=== PATIENT | female | born 2000 ===

== ENCOUNTER 2020-05-23 11:16 | Emergency (ER) | payer OTHER ==
[2020-05-23 12:26] LABS: Urine Blood NEGATIVE (NEG); Urine Glucose NEGATIVE (NEG); Urine Protein NEGATIVE (NEG)
[2020-05-23 12:36] LABS: Urine Bacteria 20-50 /HPF (<20); Urine Culture Reflex Order REFLEXED; Urine RBC NONE SEEN /HPF (NONE SEEN)
[2020-05-23 13:17] LABS: Absolute Lymphocytes (CBC) 1.7 K/uL (0.7-4.9); Basophils % 0.4 % (0-1.3); Hematocrit 26.4 % (36.0-45.0); Lymphocytes % 12.5 % (15.3-44.8); MPV 7.5 fL (7.6-11.3); RBC Red Blood Cell Count 3.46 M/uL (3.86-4.86)
[2020-05-23 13:26] LABS: BUN Blood Urea Nitrogen 5 mg/dL (7-18); Bicarbonate 23 mmol/L (21-32); Glucose Level 72 mg/dL (74-106); Potassium 3.8 mmol/L (3.5-5.1); Sodium Level 135 mmol/L (136-145)
[2020-05-23 13:30] LABS: Blood Morphology Comment NOT SEEN (NOT SEEN); Platelet Estimate ADEQ
[2020-05-23] MEDS ORDERED: NA CHLORIDE 0.9% 1,000 ML ONE (13:38)
--- NOTE | 2020-05-23 14:13 | ER ---
Nurse's Notes [facility] Name: Jen Balbuena Age: 19 yrs Sex: Female : 2000 Arrival Date: 05/23/2020 Time: 11:19 Bed 6 Private MD: Diagnosis: Syncope and collapse;Urinary tract infection, site not specified Presentation: 05/23 11:40 Chief complaint: Patient states: Syncopal episode 1 hour ago while shopping. Fell ss backwards. Complains of mild low back pain and intermittent dizziness. Pt is 29 weeks , denies abd pain/ vaginal bleeding. Coronavirus screen: Patient denies a cough. Patient denies shortness of breath or difficulty breathing. Patient denies measured and/or subjective temperature greater than 100.4F prior to today's visit. Patient denies travel on a cruise ship or to a country the [facility] currently lists as an affected area. Patient denies contact with known and/or suspected case of COVID-19. Proceed with normal triage. Ebola Screen: Patient denies exposure to infectious person. Patient denies travel to an Ebola-affected area in the 21 days before illness onset. Initial Sepsis Screen: Does the patient meet any 2 criteria? No. Patient's initial sepsis screen is negative. Does the patient have a suspected source of infection? No. Patient's initial sepsis screen is negative. Risk Assessment: Do you want to hurt yourself or someone else? Patient reports no desire to harm self or others. Onset of symptoms was May 23, 2020 at 10:50. 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 - Social history:: Smoking status: Patient denies any tobacco usage or history of. Screenin:05 Abuse screen: Denies threats or abuse. Nutritional screening: No deficits noted. em Tuberculosis screening: No symptoms or risk factors identified. Fall Risk None identified. Assessment: 12:05 General: Appears in no apparent distress. comfortable, Behavior is calm, cooperative, em appropriate for age, Denies fever. Pain: Denies pain. Neuro: Level of Consciousness is awake, alert, obeys commands, Oriented to person, place, time, situation, Appropriate for age Reports a syncopal episode Denies weakness headache. Cardiovascular: Denies chest pain, Capillary refill < 3 seconds Patient's skin is warm and dry. Respiratory: Airway is patent Respiratory effort is even, unlabored, Respiratory pattern is regular, symmetrical. GI: Patient currently denies nausea, vomiting. : Denies burning with urination, cramping discharge, urinary frequency, vaginal bleeding. Derm: Skin is intact, is healthy with good turgor, Skin is pink, warm \T\ dry. Musculoskeletal: Capillary refill < 3 seconds, Range of motion: intact in all extremities. 13:25 Reassessment: Patient appears in no apparent distress at this time. Patient and/or em family updated on plan of care and expected duration. Pain level reassessed. Patient is alert, oriented x 3, equal unlabored respirations, skin warm/dry/pink. 14:14 Reassessment: Patient appears in no apparent distress at this time. Patient and/or em family updated on plan of care and expected duration. Pain level reassessed. Patient is alert, oriented x 3, equal unlabored respirations, skin warm/dry/pink. Vital Signs: 11:40 BP 126 / 77; Pulse 91; Resp 14; Temp 98.6(TE); Pulse Ox 100% on R/A; Weight 74.84 kg; ss Height 5 ft. 5 in. (165.10 cm); Pain 4/10; 12:57 BP 129 / 75 RA Supine; Pulse 83; Resp 16; Pulse Ox 100% on R/A; dh3 12:59 BP 120 / 74 RA Sitting; Pulse 106; Resp 18; Pulse Ox 99% on R/A; dh3 13:01 BP 127 / 62 RA Standing; Pulse 102; Resp 18; Pulse Ox 100% on R/A; dh3 14:13 BP 122 / 80; Pulse 91; Resp 18; Pulse Ox 100% on R/A; Pain 0/10; em 11:40 Body Mass Index 27.46 (74.84 kg, 165.10 cm) Vitals: 13:13 Heart Tones: 174. dh3 ED Course: 11:19 Patient arrived in ED. bp1 11:42 Triage completed. ss 11:43 Arm band placed on right wrist. ss 11:44 Aleja Justice FNP-C is [facility]. kb 11:44 Jesus Alves MD is Attending Physician. kb 11:49 Yoshi Lay, RN is Primary Nurse. em 12:05 Patient has correct armband on for positive identification. Placed in gown. Bed in low em position. Side rails up X2. Pulse ox on. NIBP on. 13:05 Initial lab(s) drawn, by ia, sent to lab. Inserted saline lock: 20 gauge in right dh3 antecubital area, using aseptic technique. Blood collected. 13:31 EKG done, by ED staff, reviewed by Aleja STARKS. [facility] Administered Medications: 13:25 Drug: NS 0.9% 1000 ml Route: IV; Rate: 1000 ml; Site: right antecubital; em 14:35 Follow up: Response: No adverse reaction; IV Status: Completed infusion; IV Intake: ph 800ml Intake: 14:35 IV: 800ml; Total: 800ml. ph Outcome: 14:13 Discharge ordered by . kb 14:36 Patient left the ED. ph Signatures: Aleja Justice FNP-C ELECTRONIC SCALE TESTER-Yoshi Mcneal, RN ANNIE Leslie Gallagher RN RN Sun Mattson RN RN [place] [id number] Fa[address] Quiñonez [facility]
--- NOTE | 2020-05-23 14:13 | EDPHYS ---
Physician Documentation [facility] Name: Jen Balbuena Age: 19 yrs Sex: Female : 2000 Arrival Date: 05/23/2020 Time: 11:19 Bed 6 Private MD: MIGUELINA Physician Jesus Alves HPI: 05/23 13:04 This 19 yrs old Female presents to ER via Ambulatory with complaints of Passed Out kb Prior To Arrival, + 7MTHS PREG.. 13:04 The patient has experienced syncope, collapsed. Onset: The symptoms/episode kb began/occurred just prior to arrival. Duration: This was a single episode, that lasted 5 second(s). Context: the episode(s) was witnessed, by family, occurred at a store, occurred while the patient was standing, Just prior to the episode the patient experienced dizziness, lightheadedness. Associated injury: The patient did not suffer any apparent associated injury. Associated signs and symptoms: Pertinent positives: dizziness, lightheadedness. Current symptoms: Currently, the patient is not experiencing any symptoms, the patient feels back to baseline, no decreased level of consciousness, no confusion, no dysphasia, no headache, no paralysis, no visual changes. The patient has not experienced similar symptoms in the past. The patient has not recently seen a physician. Pt reports she was shopping in [employer], had a slight dizziness that went away, then had the feeling again and passed out. States her boyfriend's mom said she was out for "maybe 5 seconds." Pt reports she is 29 weeks , denies any complications with . Has not eaten yet today. 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 - Social history:: Smoking status: Patient denies any tobacco usage or history of. ROS: 13:07 Constitutional: Negative for fever, chills, and weight loss, Cardiovascular: Negative kb for chest pain, palpitations, and edema, Respiratory: Negative for shortness of breath, cough, wheezing, and pleuritic chest pain, Abdomen/GI: Negative for abdominal pain, nausea, vomiting, diarrhea, and constipation, Back: Negative for injury and pain, MS/Extremity: Negative for injury and deformity, Skin: Negative for injury, rash, and discoloration. 13:07 Neuro: Positive for dizziness, syncope. Exam: 13:07 Constitutional: This is a well developed, well nourished patient who is awake, alert, kb and in no acute distress. Head/Face: Normocephalic, atraumatic. Eyes: Pupils equal round and reactive to light, extra-ocular motions intact. Lids and lashes normal. Conjunctiva and sclera are non-icteric and not injected. Cornea within normal limits. Periorbital areas with no swelling, redness, or edema. Chest/axilla: Normal chest wall appearance and motion. Nontender with no deformity. No lesions are appreciated. Cardiovascular: Regular rate and rhythm with a normal S1 and S2. No gallops, murmurs, or rubs. Normal PMI, no JVD. No pulse deficits. Respiratory: Lungs have equal breath sounds bilaterally, clear to auscultation and percussion. No rales, rhonchi or wheezes noted. No increased work of breathing, no retractions or nasal flaring. Abdomen/GI: Soft, non-tender, with normal bowel sounds. No distension or tympany. No guarding or rebound. No evidence of tenderness throughout. Skin: Warm, dry with normal turgor. Normal color with no rashes, no lesions, and no evidence of cellulitis. MS/ Extremity: Pulses equal, no cyanosis. Neurovascular intact. Full, normal range of motion. Neuro: Awake and alert, GCS 15, oriented to person, place, time, and situation. Cranial nerves II-XII grossly intact. Motor strength 5/5 in all extremities. Sensory grossly intact. Cerebellar exam normal. Normal gait. 13:45 ECG was reviewed by the Attending Physician. kb Vital Signs: 11:40 BP 126 / 77; Pulse 91; Resp 14; Temp 98.6(TE); Pulse Ox 100% on R/A; Weight 74.84 kg; ss Height 5 ft. 5 in. (165.10 cm); Pain 4/10; 12:57 BP 129 / 75 RA Supine; Pulse 83; Resp 16; Pulse Ox 100% on R/A; dh3 12:59 BP 120 / 74 RA Sitting; Pulse 106; Resp 18; Pulse Ox 99% on R/A; dh3 13:01 BP 127 / 62 RA Standing; Pulse 102; Resp 18; Pulse Ox 100% on R/A; dh3 14:13 BP 122 / 80; Pulse 91; Resp 18; Pulse Ox 100% on R/A; Pain 0/10; em 11:40 Body Mass Index 27.46 (74.84 kg, 165.10 cm) ss MDM: 11:44 Patient medically screened. kb 12:21 Data reviewed: vital signs, nurses notes. Data interpreted: Pulse oximetry: on room air kb is 100 %. Interpretation: normal. 14:12 Counseling: I had a detailed discussion with the patient and/or guardian regarding: the kb historical points, exam findings, and any diagnostic results supporting the discharge/admit diagnosis, lab results, the need for outpatient follow up, a family practitioner, to return to the emergency department if symptoms worsen or persist or if there are any questions or concerns that arise at home. 05/23 12:06 Order name: Urine Microscopic Only; Complete Time: 12:36 em 05/23 12:06 Order name: Urine Dipstick--Ancillary (enter results); Complete Time: 12:26 mt 05/23 12:07 Order name: CBC with Diff; Complete Time: 13:44 kb 05/23 12:07 Order name: Basic Metabolic Panel; Complete Time: 13:44 kb 05/23 12:38 Order name: Urine Culture EDMT 05/23 13:30 Order name: Manual Differential; Complete Time: 13:44 EDMT 05/23 11:44 Order name: Urine Dipstick-Ancillary (obtain specimen); Complete Time: 12:51 kb 05/23 11:44 Order name: Orthostatics; Complete Time: 13:19 kb 05/23 11:44 Order name: FHT's; Complete Time: 13:18 kb 05/23 12:07 Order name: IV Start; Complete Time: 13:18 kb 05/23 13:08 Order name: EKG; Complete Time: 13:09 kb 05/23 13:08 Order name: EKG - Nurse/Tech; Complete Time: 13:33 kb EC:45 Rate is 83 beats/min. Rhythm is regular. QRS [place] is Normal. NE interval is normal at kb 136 msec. QRS interval is normal at 72 msec. QT interval is normal at 348 msec. Administered Medications: 13:25 Drug: NS 0.9% 1000 ml Route: IV; Rate: 1000 ml; Site: right antecubital; em 14:35 Follow up: Response: No adverse reaction; IV Status: Completed infusion; IV Intake: ph 800ml Disposition: 05/24 10:25 Co-signature as Attending Physician, Jesus Alves MD I agree with the assessment and alberto plan of care. Disposition: 05/23/20 14:13 Discharged to Home. Impression: Syncope and collapse, Urinary tract infection, site not specified. - Condition is Stable. - Discharge Instructions: Syncope, [id number], and Urinary Tract Infection. - Prescriptions for Macrobid 100 mg Oral Capsule - take 1 capsule by ORAL route every 12 hours for 7 days; 14 capsule. - Medication Reconciliation Form, Thank You Letter, Antibiotic Education, Prescription Opioid Use form. - Follow up: Emergency Department; When: As needed; Reason: Worsening of condition. Follow up: Private Physician; When: 2 - 3 days; Reason: Recheck today's complaints, Continuance of care, Re-evaluation by your physician. Signatures: Dispatcher [employer] Aleja Euceda, TRACTOR ENGINE ASSEMBLER-C TRACTOR ENGINE ASSEMBLER-Jesus Vazquez MD MD cha Munoz, Edgar, RN RN em Smirch, Shelby, RN RN ss Hall, Patricia, RN RN ph Corrections: (The following items were deleted from the chart) 05/23 14:36 14:13 05/23/2020 14:13 Discharged to Home. Impression: Syncope and collapse; Urinary ph tract infection, site not specified. Condition is Stable. Forms are Medication Reconciliation Form, Thank You Letter, Antibiotic Education, Prescription Opioid Use. Follow up: Emergency Department; When: As needed; Reason: Worsening of condition. Follow up: Private Physician; When: 2 - 3 days; Reason: Recheck today's complaints, Continuance of care, Re-evaluation by your physician. kb
[2020-05-23 14:40] VITALS: TEMP 98.6
[2020-05-23 14:43] VITALS: O2SAT 100
[2020-05-23 14:45] VITALS: BP 122/80
--- NOTE | 2020-05-24 08:10 | EKG ---
Test Date: 2020-05-23 Test Time: 13:28:21 Research Test Engine Evaluator: KURTIS MEASUREMENT RESULTS: Intervals: Rate: 83 [place]: 136 QRSD: 72 QT: 348 QTc: 408 Strong: P: 11 [place]: 136 QRS: 62 T: 32 INTERPRETIVE STATEMENTS: Normal sinus rhythm Normal ECG No previous ECG available for comparison Electronically Signed On 05-24-20 08:08:51 CDT by Tay Wright
== END 2020-05-23 14:36 | disposition home or self-care (01) ==
LOC: ER 11:16
DX: O23.43 Unspecified infection of urinary tract in pregnancy, third trimester (principal); Z3A.29 29 weeks gestation of pregnancy
CPT/HCPCS: 93005; 87088; 85025; 87086; 80048; 36415; 96360; 99284; J7030; 81003; 81015